=== PATIENT | female | born 1970 | race Two or more races ===

== ENCOUNTER 2024-07-08 08:50 | Emergency (ER) | payer OTHER ==
[~2024-07-08] VITALS: Ht 147.3 cm; Wt 54.9 kg
[2024-07-08] MEDS ORDERED: XOPENEX HFA15 GM IH (08:58)
[2024-07-08] MEDS ORDERED: ZESTRIL20 MG (08:58)
[2024-07-08] MEDS ORDERED: SIMVASTATIN80 MG PO (08:58)
[2024-07-08] MEDS ORDERED: ADULT LOW DOSE81 M1 (08:59)
[2024-07-08] MEDS ORDERED: MONTELUKAST SODI4 M1 (08:59)
[2024-07-08] MEDS ORDERED: NEURONTIN600 M1 PO (08:59)
[2024-07-08] MEDS ORDERED: PROTONIX20 MG PO (08:59)
[2024-07-08 09:01] VITALS: BP 130/73; O2SAT 96
[2024-07-08] MEDS ORDERED: IBUprofen 100 MG/5 ML-120ML ML PO STA (09:09)
[2024-07-08] MEDS ORDERED: IBUprofen 20 MG/ML BLIST.PACK (5ML) PO ONE (09:17)
== END 2024-07-08 12:33 | disposition home or self-care (01) ==
LOC: ER 08:51
DX: M25.531 Pain in right wrist (principal); W18.31XA Fall on same level due to stepping on an object, initial encounter; Y93.89 Activity, other specified; Y92.413 State road as the place of occurrence of the external cause; Z88.6 Allergy status to analgesic agent; M25.521 Pain in right elbow; R07.81 Pleurodynia